=== PATIENT | female | born 1995 | race American Indian/Alaskan Native ===

== ENCOUNTER 2019-10-03 20:19 | Emergency (ER) | payer SELFPAY ==
[2019-10-03] MEDS ORDERED: methylPREDNISolone Sod Succinate 125 MG/2 ML INJ IM ONE (20:53)
--- NOTE | 2019-10-03 20:55 | Emergency Department Report ---
ED Allergic Reaction HPI - General Chief complaint: Allergic Reaction Stated complaint: ALLERGIC REACTION X 2 DAYS Time Seen by Provider: 10/03/19 20:51 Source: patient Mode of arrival: Ambulatory Limitations: No Limitations - History of Present Illness Initial Comments: 24-year-old female, history of schizophrenia, presents to ED with complaint of allergic reaction. Patient states symptoms began on yesterday, consisting of itchy rash, nausea. Patient states she used a new perfume the day before her symptoms presented. She reports some mild swelling to lips and mild shortness of breath. Patient took Benadryl prior to arrival. MD Complaint: allergic reaction -: days(s) (1) Symptoms: rash, itching, lip swelling, difficulty breathing, nausea Severity: moderate Treatment Prior to Arrival: benadryl Previous Allergy History: none - Related Data Previous Rx's Medication Instructions Recorded Last Taken Type predniSONE [Deltasone] 50 mg PO QDAY #5 tab 10/03/19 Unknown Rx Allergies Allergy/AdvReac Type Severity Reaction Status Date / Time No Known Allergies Allergy Verified 10/03/19 20:31 ED Review of Systems ROS: Stated complaint: ALLERGIC REACTION X 2 DAYS Other details as noted in HPI Comment: All other systems reviewed and negative Respiratory: shortness of breath Gastrointestinal: nausea. denies: vomiting Skin: rash, pruritus ED Past Medical Hx - Past Medical History Previous Medical History?: Yes Hx Asthma: Yes - Surgical History Past Surgical History?: No - Medications Home Medications: Home Medications Medication Instructions Recorded Confirmed Last Taken Type predniSONE [Deltasone] 50 mg PO QDAY #5 tab 10/03/19 Unknown Rx ED Physical Exam - General Limitations: No Limitations General appearance: alert, in no apparent distress - Head Head exam: Present: atraumatic, normocephalic - Eye Eye exam: Present: normal appearance, PERRL, EOMI - ENT ENT exam: Present: mucous membranes moist, other (slight swelling to lips present; no tongue swelling present; no swelling to posterior oropharynx) - Neck Neck exam: Present: normal inspection - Respiratory Respiratory exam: Present: normal lung sounds bilaterally. Absent: respiratory distress, wheezes, stridor - Cardiovascular Cardiovascular Exam: Present: regular rate, normal rhythm - GI/Abdominal GI/Abdominal exam: Present: soft. Absent: distended, tenderness - Extremities Exam Extremities exam: Present: normal inspection - Neurological Exam Neurological exam: Present: alert, oriented X3 - Psychiatric Psychiatric exam: Present: normal affect, normal mood - Skin Skin exam: Present: urticaria ED Course Vital Signs 10/03/19 10/03/19 20:27 20:31 Temperature 98.2 F Pulse Rate 89 Respiratory 12 18 Rate Blood Pressure 97/49 O2 Sat by Pulse 98 Oximetry ED Medical Decision Making - Medical Decision Making 24-year-old female presents to ED with urticarial rash since yesterday. Likely due to a new perfume that patient has used. Patient is in no respiratory distress. Lungs are clear. There is no stridor present. O2 sats are normal. Patient has received Solu-Medrol here in the ED. Will be discharged with prescriptions. Outpatient follow-up advised, return precautions given. Critical care attestation.: If time is entered above; I have spent that time in minutes in the direct care of this critically ill patient, excluding procedure time. ED Disposition Clinical Impression: Allergic reaction Disposition: DC-01 TO HOME OR SELFCARE Is pt being admited?: No Condition: Stable Instructions: Urticaria (ED), Allergies (ED) Referrals: [facility] [Provider Group] - 3-5 Days Time of Disposition: 21:37
[2019-10-03] MEDS ORDERED: IBUPROFEN 800 MG TAB PO ONE (21:43)
[2019-10-03 21:56] VITALS: BP 110/58
== END 2019-10-03 21:50 | disposition home or self-care (01) ==
LOC: ED 20:19
DX: T78.40XA Allergy, unspecified, initial encounter (principal); J45.909 Unspecified asthma, uncomplicated; Y92.89 Other specified places as the place of occurrence of the external cause
CPT/HCPCS: 96372; 99282; J2930